=== PATIENT | male | born 1995 | race Two or more races ===

== ENCOUNTER 2024-02-28 14:26 | Emergency (ER) | payer SELFPAY ==
[~2024-02-28] VITALS: Ht 177.8 cm; Wt 63.5 kg
[2024-02-28] MEDS ORDERED: ACETAMINOPHEN 500 MG TABLET ONE (14:45)
[2024-02-28] MEDS: ACETAMINOPHEN 500 MG TABLET PO ONE (14:46)
[2024-02-28 16:18] VITALS: BP 120/70; O2SAT 98
== END 2024-02-28 16:18 | disposition home or self-care (01) ==
LOC: ER 14:26
DX: S13.4XXA Sprain of ligaments of cervical spine, initial encounter (principal); S00.83XA Contusion of other part of head, initial encounter; V09.9XXA Pedestrian injured in unspecified transport accident, initial encounter; Y93.89 Activity, other specified; Y92.89 Other specified places as the place of occurrence of the external cause; Y99.8 Other external cause status
CPT/HCPCS: 70450; 71250; 72125; 93005; A4606; A4663; A9150